=== PATIENT | male | born 1965 | race Caucasian/White ===

== ENCOUNTER 2023-01-08 14:30 | Emergency (ER) | payer OTHER ==
[2023-01-08] MEDS ORDERED: ETOMIDATE 20 MG/10 ML VIAL IV ONE (15:53)
[2023-01-08] MEDS ORDERED: NA CHLORIDE 0.9% 1,000 ML ONE (15:54)
--- NOTE | 2023-01-08 16:08 | RAD REPORT ---
EXAM DESCRIPTION: RAD - Wrist Left 2 View - 01/08/2023 4:01 pm CLINICAL HISTORY: trauma;Deformity Pain COMPARISON: No comparisons FINDINGS: Mildly comminuted intra-articular fracture of the distal radius is present. Ulnar styloid fracture also noted. Probable scaphoid waist fracture also suspected. A dislocation is not evident.
--- NOTE | 2023-01-08 16:42 | ER ---
Nurse's Notes [facility] Name: Benedict Melgar Age: 57 yrs Sex: Male : 1965 Arrival Date: 01/08/2023 Time: 14:30 Bed 20 Private MD: Diagnosis: Distal radius and ulna fracture, possible scaphoid fracture. Fall on outstretched hand. Presentation: 01/08 14:53 Chief complaint: Patient states: fell coming down from attic. Care prior to arrival:. ko1 14:53 Acuity: LA 2 ko1 14:53 Method Of Arrival: Ambulatory ko1 14:54 Coronavirus screen: At this time, the client does not indicate any symptoms associated ko1 with coronavirus-19. Ebola Screen: No symptoms or risks identified at this time. Initial Sepsis Screen: Does the patient meet any 2 criteria? No. Patient's initial sepsis screen is negative. Does the patient have a suspected source of infection? No. Patient's initial sepsis screen is negative. Risk Assessment: Do you want to hurt yourself or someone else? Patient reports no desire to harm self or others. Onset of symptoms was January 08, 2023. Triage Assessment: 14:57 General: Appears distressed, uncomfortable, Behavior is calm, cooperative, appropriate ko1 for age. Pain: Complains of pain in left wrist. Historical: - Allergies: 14:57 Sulfa (Sulfonamide Antibiotics); ko1 - Immunization history:: Adult Immunizations up to date. - Social history:: Smoking status: Patient denies any tobacco usage or history of. Screenin:40 [facility] ED Fall Risk Assessment (Adult) Score/Fall Risk Level 0 - 2 = Low Risk. Abuse eh3 screen: Denies threats or abuse. Denies injuries from another. Nutritional screening: No deficits noted. Tuberculosis screening: No symptoms or risk factors identified. Assessment: 14:40 General: Appears in no apparent distress. uncomfortable, Behavior is calm, cooperative, eh3 appropriate for age. Pain: Complains of pain in left wrist. Neuro: Level of Consciousness is awake, alert, obeys commands, Oriented to person, place, time, situation. Cardiovascular: Capillary refill < 3 seconds Patient's skin is warm and dry. Respiratory: Airway is patent Respiratory effort is even, unlabored, Respiratory pattern is regular, symmetrical. GI: Abdomen is round. Derm: Skin is pink, warm \T\ dry. Musculoskeletal: Bony deformity noted of left wrist. 15:00 Reassessment: Patient appears in no apparent distress at this time. Patient and/or eh3 family updated on plan of care and expected duration. Pain level reassessed. Patient is alert, oriented x 3, equal unlabored respirations, skin warm/dry/pink. 16:00 Reassessment: Patient appears in no apparent distress at this time. Patient and/or eh3 family updated on plan of care and expected duration. Pain level reassessed. Patient is alert, oriented x 3, equal unlabored respirations, skin warm/dry/pink. 16:05 Reassessment: Conscious sedation started; see Flowsheet for additional documentation. eh3 17:00 Reassessment: Patient appears in no apparent distress at this time. Patient and/or eh3 family updated on plan of care and expected duration. Pain level reassessed. Patient is alert, oriented x 3, equal unlabored respirations, skin warm/dry/pink. Vital Signs: 14:54 BP 130 / 84; Pulse 76; Resp 16; Temp 98; Pulse Ox 99% ; ko1 15:30 BP 137 / 90; Pulse 72; Resp 14; Pulse Ox 100% on R/A; eh3 16:00 BP 142 / 97; Pulse 72; Resp 18; Pulse Ox 100% on R/A; eh3 16:30 BP 153 / 98; Pulse 63; Resp 16; Pulse Ox 100% on 2 lpm NC; eh3 17:00 BP 144 / 92; Pulse 74; Resp 20; Pulse Ox 99% on R/A; eh3 ED Course: 14:31 Patient arrived in ED. mg5 14:34 Brianna Nesbitt MD is Attending Physician. sp3 14:40 Patient has correct armband on for positive identification. Bed in low position. Call eh3 light in reach. Side rails up X2. Adult w/ patient. Provided Education on: use of call hall. Client placed on continuous cardiac and pulse oximetry monitoring. NIBP monitoring applied. Ice pack to injury. 14:54 Triage completed. ko1 14:57 Arm band placed on right wrist. 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 15:10 Provided Education on: Conscious Sedation, Procedure Consent. eh3 15:10 Inserted saline lock: 20 gauge in right antecubital area, using aseptic technique. eh3 15:30 Consent for conscious sedation explained by physician, signed by spouse. eh3 16:00 Assist provider with reduction of left wrist using manipulation, Set up for procedure. eh3 Performed by Brianna Nesbitt MD Immobilized with wrist splint, Patient tolerated well. 16:01 Rashmi Goodwin, JOSE is Primary Nurse. eh3 16:03 Wrist Left (2 View) XRAY In Process Unspecified. EDMS 16:10 Orthoglass splint: Volar splint applied on left arm Shoulder immobilizer applied on eh3 left shoulder, Applied post reduction by a physician. 16:39 Braden Pedro MD is Referral Physician. sp3 16:42 Wrist Left (2 View) XRAY In Process Unspecified. EDMS 17:20 IV discontinued, intact, bleeding controlled, No redness/swelling at site. Pressure eh3 dressing applied. Administered Medications: 15:45 Drug: NS 0.9% IV 1000 ml IV at 75 ml/hr continuous Route: IV; Rate: 75 ml/hr; Site: 3 right antecubital; 17:20 Follow up: IV Status: Completed infusion; IV Intake: 150ml eh3 16:07 Drug: Etomidate IVP 10 mg IVP once; Once instructed by Dr. Nesbitt Route: IVP; Site: 3 right antecubital; 16:30 Follow up: Response: No adverse reaction eh3 16:40 Drug: fentaNYL (PF) IVP 50 mcg IVP once Route: IVP; Site: right antecubital; eh3 17:00 Follow up: Response: No adverse reaction eh3 Medication: 17:30 VIS not applicable for this client. eh3 Intake: 17:20 IV: 150ml; Total: 150ml. eh3 Outcome: 16:41 Discharge ordered by . sp3 17:25 Discharged to home ambulatory, with significant other, eh3 17:25 Condition: stable 17:25 Discharge instructions given to patient, significant other, Instructed on discharge eh3 instructions, follow up and referral plans. medication usage, Demonstrated understanding of instructions, follow-up care, medications, Prescriptions given X 2, 17:27 Patient left the ED. eh3 Signatures: Dispatcher [employer] EDMS Brianna Nesbitt MD MD sp3 Rashmi Goodwin RN RN 3 Cally oDan RN RN ko1 Nikia Horton mg5 Corrections: (The following items were deleted from the chart) 14:58 14:57 Allergies: NSAIDS; ko1 ko1 14:58 14:57 Home Meds: Hydrocodone-Acetaminophen Oral; ko1 ko1 14:58 14:57 Home Meds: Fentanyl Patch Topical; ko1 ko1 16:04 15:10 Consent for conscious sedation explained by physician, signed by spouse, 3 3
--- NOTE | 2023-01-08 16:42 | EDPHYS ---
Physician Documentation [facility] Name: Benedict Melgar Age: 57 yrs Sex: Male : 1965 Arrival Date: 01/08/2023 Time: 14:30 Bed 20 Private MD: ED Physician Brianna Nesbitt HPI: 01/08 15:08 This 57 yrs old Male presents to ER via Ambulatory with complaints of Fall Injury, sp3 Wrist Injury. 15:08 57-year-old male with history of PTSD, multiple surgeries in the past now presents to sp3 the ED with left wrist pain and deformity after FOOSH injury while climbing down the attic stairs. Obvious deformity is noted. Patient has mild tingling in the third and fourth fingers. He is able to move them without difficulty as reported. He denies any other secondary injury including left elbow, left shoulder, any other extremity, head injury, loss of consciousness, headache, neck pain, chest pain, shortness of breath, back pain, abdominal pain, or any other signs or symptoms on ROS at this time. Last meal was approximately 1 PM which was just crackers.. Historical: - Allergies: 14:57 Sulfa (Sulfonamide Antibiotics); ko1 - Immunization history:: Adult Immunizations up to date. - Social history:: Smoking status: Patient denies any tobacco usage or history of. ROS: 15:09 Constitutional: Negative for fever, chills, and weight loss, Eyes: Negative for injury, sp3 pain, redness, and discharge, ENT: Negative for injury, pain, and discharge, Neck: Negative for injury, pain, and swelling, Cardiovascular: Negative for chest pain, palpitations, and edema, Respiratory: Negative for shortness of breath, cough, wheezing, and pleuritic chest pain, Abdomen/GI: Negative for abdominal pain, nausea, vomiting, diarrhea, and constipation, Back: Negative for injury and pain, Skin: Negative for injury, rash, and discoloration, Neuro: Negative for headache, weakness, numbness, tingling, and seizure, Psych: Negative for depression, anxiety, suicide ideation, homicidal ideation, and hallucinations, Allergy/Immunology: Negative for hives, rash, and allergies, Endocrine: Negative for neck swelling, polydipsia, polyuria, polyphagia, and marked weight changes, Hematologic/Lymphatic: Negative for swollen nodes, abnormal bleeding, and unusual bruising, 15:09 All other systems are negative, Exam: 15:09 Constitutional: This is a well developed, well nourished patient who is awake, alert, sp3 and in no acute distress. Head/Face: Normocephalic, atraumatic. Eyes: Pupils equal round and reactive to light, extra-ocular motions intact. Lids and lashes normal. Conjunctiva and sclera are non-icteric and not injected. Cornea within normal limits. Periorbital areas with no swelling, redness, or edema. ENT: Nares patent. No nasal discharge, no septal abnormalities noted. External auditory canals are clear. Oropharynx with no redness, swelling, or masses, exudates, or evidence of obstruction, uvula midline. Mucous membranes moist. Neck: Trachea midline, no thyromegaly or masses palpated, and no cervical lymphadenopathy. Supple, full range of motion without nuchal rigidity, or vertebral point tenderness. No Meningismus. Chest/axilla: Normal chest wall appearance and motion. Nontender with no deformity. No lesions are appreciated. Cardiovascular: Regular rate and rhythm with a normal S1 and S2. No gallops, murmurs, or rubs. Normal PMI, no JVD. No pulse deficits. Respiratory: Lungs have equal breath sounds bilaterally, clear to auscultation and percussion. No rales, rhonchi or wheezes noted. No increased work of breathing, no retractions or nasal flaring. Abdomen/GI: Soft, non-tender, with normal bowel sounds. No distension or tympany. No guarding or rebound. No evidence of tenderness throughout. Back: No spinal tenderness. No costovertebral tenderness. Full range of motion. Skin: Warm, dry with normal turgor. Normal color with no rashes, no lesions, and no evidence of cellulitis. Neuro: Awake and alert, GCS 15, oriented to person, place, time, and situation. Cranial nerves II-XII grossly intact. Motor strength 5/5 in all extremities. Sensory grossly intact. Cerebellar exam normal. Normal gait. Psych: Awake, alert, with orientation to person, place and time. Behavior, mood, and affect are within normal limits. 15:09 Musculoskeletal/extremity: Left wrist posterior distal deformity just proximal to the wrist noted. Radial pulse present. Distal cap refill and motor function is also preserved. No proximal injury noted on the elbow. Pronation and supination not tested. No pain in anatomical snuffbox.. Vital Signs: 14:54 BP 130 / 84; Pulse 76; Resp 16; Temp 98; Pulse Ox 99% ; ko1 15:30 BP 137 / 90; Pulse 72; Resp 14; Pulse Ox 100% on R/A; eh3 16:00 BP 142 / 97; Pulse 72; Resp 18; Pulse Ox 100% on R/A; eh3 16:30 BP 153 / 98; Pulse 63; Resp 16; Pulse Ox 100% on 2 lpm NC; eh3 17:00 BP 144 / 92; Pulse 74; Resp 20; Pulse Ox 99% on R/A; eh3 MDM: 15:01 Patient medically screened. 3 15:10 Data reviewed: vital signs, nurses notes, radiologic studies. ED course: 57-year-old sp3 male with likely distal radius and ulna fracture of the left wrist. X-rays pending. Procedural sedation will be administered for reduction. Patient is currently obtaining IV access we will use etomidate as needed after patient is on the monitor, pulse oxygenation monitor and volar splint will be placed after reduction is complete and postreduction x-rays reviewed. Patient has an orthopedic doctor, Dr. Ashraf, who we will follow-up with. I am not suspecting any other secondary injury at this time.. 16:33 ED course: Postreduction x-ray demonstrates adequate alignment. Patient is now awake sp3 alert and in no acute distress. Fentanyl 50 mcg IV was also administered. We will discharge patient home on tramadol and follow-up with Dr. Ashraf.. 01/08 15:06 Order name: Wrist Left (2 View) XRAY; Complete Time: 16:18 3 01/08 16:17 Order name: Wrist Left (2 View) XRAY; Complete Time: 16:56 [facility] 01/08 15:07 Order name: NPO; Complete Time: 15:27 3 01/08 15:07 Order name: Monitor; Complete Time: 15:27 3 01/08 15:07 Order name: Pulse Ox Monitoring; Complete Time: 15:27 3 01/08 15:07 Order name: Conscious Sedation; Complete Time: 16:25 [facility] 01/08 15:07 Order name: Splint - Volar Wrist Splint; Complete Time: 16:25 sp3 01/08 15:07 Order name: Sling; Complete Time: 16:25 sp3 01/08 15:07 Order name: IV Saline Lock; Complete Time: 15:33 sp3 Administered Medications: 15:45 Drug: NS 0.9% IV 1000 ml IV at 75 ml/hr continuous Route: IV; Rate: 75 ml/hr; Site: [facility] right antecubital; 17:20 Follow up: IV Status: Completed infusion; IV Intake: 150ml [facility] 16:07 Drug: Etomidate IVP 10 mg IVP once; Once instructed by Dr. Nesbitt Route: IVP; Site: [facility] right antecubital; 16:30 Follow up: Response: No adverse reaction [facility] 16:40 Drug: fentaNYL (PF) IVP 50 mcg IVP once Route: IVP; Site: right antecubital; [facility] 17:00 Follow up: Response: No adverse reaction [facility] Disposition Summary: 01/08/23 16:41 Discharge Ordered Notes: Location: Home [facility] Condition: Stable sp3 Diagnosis - Distal radius and ulna fracture, possible scaphoid fracture. Fall on outstretched sp3 hand. Followup: sp3 - With: Braden Ashraf MD - When: Upon discharge from the Emergency Department - Reason: Continuance of care Discharge Instructions: - Discharge Summary Sheet sp3 - Wrist Fracture Treated With Immobilization sp3 - Moderate Conscious Sedation, Adult, Care After sp3 Forms: - Medication Reconciliation Form sp3 - Thank You Letter sp3 - Antibiotic Education sp3 - Prescription Opioid Use sp3 - Patient Portal Instructions sp3 - Leadership Thank You Letter sp3 Prescriptions: - Diclofenac Sodium 75 mg Oral Tablet Sustained Release - take 1 tablet ORAL route 2 times per day; 30 tablet; Refills: 0, Product sp3 Selection Permitted - Tramadol 50 mg Oral Tablet - take 1 tablet ORAL route every 8 hours as needed; 12 tablet; Refills: 0, sp3 Product Selection Permitted Signatures: Dispatcher [employer] Brianna Encarnacion MD MD sp3 Rashmi Goodwin RN RN 3 Cally Doan RN RN ko1 Corrections: (The following items were deleted from the chart) 14:58 14:57 Allergies: NSAIDS; ko1 ko1 14:58 14:57 Home Meds: Hydrocodone-Acetaminophen Oral; ko1 ko1 14:58 14:57 Home Meds: Fentanyl Patch Topical; ko1 ko1 16:35 15:09 Musculoskeletal/extremity: Left wrist posterior distal deformity just proximal to sp3 the wrist noted. Radial pulse present. Distal cap refill and motor function is also preserved. No proximal injury noted on the elbow. Pronation and supination not tested.. sp3
[2023-01-08] MEDS ORDERED: FENTANYL CITR 100 MCG/2 ML ONE (16:43)
--- NOTE | 2023-01-08 16:47 | RAD REPORT ---
EXAM DESCRIPTION: RAD - Wrist Left 2 View - 01/08/2023 4:40 pm CLINICAL HISTORY: post reduction Pain COMPARISON: Wrist Left 2 View dated 01/08/2023 FINDINGS: The previously noted fracture is been reduced within a splint. Distal radius intra-articul ar fracture and ulnar styloid avulsion again noted. Previously noted scaphoid fracture less apparent and is questionable.
[2023-01-08 17:46] VITALS: TEMP 98
[2023-01-08 17:48] VITALS: BP 137/90; O2SAT 100
== END 2023-01-08 17:27 | disposition home or self-care (01) ==
LOC: ER 14:30
PROC: 0PSJ35Z Reposition Left Radius with External Fixation Device, Percutaneous Approach (ICD-10-PCS; principal; 2023-01-08)
PROC: 0PSL35Z Reposition Left Ulna with External Fixation Device, Percutaneous Approach (ICD-10-PCS; 2023-01-08)
DX: S52.502A Unspecified fracture of the lower end of left radius, initial encounter for closed fracture (principal); S52.602A Unspecified fracture of lower end of left ulna, initial encounter for closed fracture; Z88.2 Allergy status to sulfonamides
CPT/HCPCS: 96361; 93005; 73100 ×2; 96375; 96374; 99285; 25605; J3010; J7030